=== PATIENT | male | born 1930 | race Caucasian/White ===

== ENCOUNTER 2018-08-12 11:46 | Inpatient (IN) | payer MEDICARE ==
[~2018-08-12] VITALS: Ht 175.3 cm; Wt 78.9 kg
[2018-08-12] MEDS ORDERED: SODIUM CHLORIDE FLUSH 10ML SYR IVF ONE (12:00)
[2018-08-12] MEDS ORDERED: PLEASE ENTER ALLERGIES MC SCH (12:00)
[2018-08-12 12:28] LABS: BASOPHILS # (AUTO) 0.02 x10^3/uL (0-0.1); BASOPHILS % (AUTO) 0 % (0-1); EOSINOPHILS # (AUTO) 0.04 x10^3/uL (0-0.4); EOSINOPHILS % (AUTO) 1 % (1-7); LYMPHOCYTES # (AUTO) 1.19 x10^3/uL (1-3.4); LYMPHOCYTES % (AUTO) 17 % (22-44); MD NO; MEAN CORPUSCULAR HEMOGLOBIN 32.6 pg (27.5-34.5); MEAN CORPUSCULAR HGB CONC 34.1 g/dL (33.2-36.2); MEAN CORPUSCULAR VOLUME 95.5 fL (81-97); MEAN PLATELET VOLUME 10.2 fL (7.4-10.4); MONOCYTES # (AUTO) 0.99 x10^3/uL (0.2-0.8); MONOCYTES % (AUTO) 14 % (2-9); NEUTROPHILS # (AUTO) 4.69 x10^3/uL (1.8-6.8); NEUTROPHILS % (AUTO) 68 % (42-75); PLATELET COUNT 208 x10^3/uL (130-400); RED CELL DISTRIBUTION WIDTH 13.2 % (9.4-14.8)
[2018-08-12 12:39] LABS: INTERNATIONAL NORMALIZED RATIO 1.05 (0.93-1.1); PROTHROMBIN TIME 10.9 Seconds (9.6-11.5)
[2018-08-12 12:47] LABS: ALANINE AMINOTRANSFERASE 27 U/L (12-78); ALBUMIN 3.8 g/dL (3.4-5.0); ANION GAP 9 mmol/L (5-15); CALCIUM 8.7 mg/dL (8.5-10.1); CHLORIDE 107 mmol/L (98-107)
[2018-08-12 12:49] LABS: ALKALINE PHOSPHATASE 88 U/L (45-117); BILIRUBIN,TOTAL 0.7 mg/dL (0.2-1.0); CREATININE 1.23 mg/dL (0.7-1.3); TOTAL PROTEIN 7.3 g/dL (6.4-8.2)
[2018-08-12] MEDS ORDERED: DIVA500T2 PO (15:21)
[2018-08-12] MEDS ORDERED: ASPI-496 PO (15:21)
[2018-08-12] MEDS ORDERED: DONE10TA14 PO (15:21)
[2018-08-12] MEDS ORDERED: SODIUM CHLORIDE FLUSH 10ML SYR IVF PRN (16:00)
[2018-08-12] MEDS: SODIUM CHLORIDE 0.9% 1,000 ML IV SCH (16:42)
[2018-08-12] MEDS ORDERED: DOCUSATE 100 MG CAPSULE PO PRN (17:00)
[2018-08-12] MEDS ORDERED: POLYETHYLENE GLYCOL 17 GM PACKET PO PRN (17:00)
[2018-08-12] MEDS ORDERED: BISACODYL 10 MG SUPP PR PRN (17:00)
[2018-08-12] MEDS ORDERED: LABETALOL 5MG/ML, 20ML IVPush PRN (17:00)
[2018-08-12] MEDS ORDERED: ENALAPRILAT 1.25 MG/ML, 2ML IVPush PRN (17:00)
[2018-08-12] MEDS ORDERED: ACETAMINOPHEN 325 MG TABLET PO PRN (17:00)
[2018-08-12 18:00] VITALS: BP 160/89
[2018-08-12 19:59] VITALS: BP 155/88
[2018-08-12] MEDS: HEPARIN 5,000 UNITS/ML, 1ML SQ SCH (20:16)
[2018-08-13 03:40] VITALS: BP 167/89
[2018-08-13] MEDS: HEPARIN 5,000 UNITS/ML, 1ML SQ SCH ×3 (04:41→20:31)
[2018-08-13] MEDS: SODIUM CHLORIDE 0.9% 1,000 ML IV SCH ×2 (06:12→20:31)
[2018-08-13 06:25] LABS: ALANINE AMINOTRANSFERASE 27 U/L (12-78); ALBUMIN 3.5 g/dL (3.4-5.0); ANION GAP 10 mmol/L (5-15); CHLORIDE 109 mmol/L (98-107); CREATININE 0.97 mg/dL (0.7-1.3)
[2018-08-13 06:27] LABS: ALKALINE PHOSPHATASE 80 U/L (45-117); BILIRUBIN,TOTAL 0.9 mg/dL (0.2-1.0); TOTAL PROTEIN 6.6 g/dL (6.4-8.2)
[2018-08-13 06:40] VITALS: BP 157/90
[2018-08-13] MEDS: ASPIRIN 81 MG TABLET EC PO SCH (09:26)
[2018-08-13] MEDS: DONEPEZIL 10 MG TABLET PO SCH (09:26)
[2018-08-13 14:40] VITALS: BP 125/72
[2018-08-13 18:16] LABS: MICROSCOPIC AUTO
[2018-08-13 18:34] LABS: CULTURE INDICATED? YES
[2018-08-13 21:53] VITALS: BP 186/85
[2018-08-13 22:08] VITALS: BP 183/100
[2018-08-13 22:44] VITALS: BP 153/85
[2018-08-14 01:49] VITALS: BP 166/70
[2018-08-14] MEDS: HEPARIN 5,000 UNITS/ML, 1ML SQ SCH ×3 (04:41→20:45)
[2018-08-14 07:15] VITALS: BP 178/86
[2018-08-14 07:37] LABS: BASOPHILS # (AUTO) 0.02 x10^3/uL (0-0.1); BASOPHILS % (AUTO) 0 % (0-1); EOSINOPHILS # (AUTO) 0.09 x10^3/uL (0-0.4); EOSINOPHILS % (AUTO) 1 % (1-7); LYMPHOCYTES # (AUTO) 1.27 x10^3/uL (1-3.4); LYMPHOCYTES % (AUTO) 20 % (22-44); MD NO; MEAN CORPUSCULAR HEMOGLOBIN 32.3 pg (27.5-34.5); MEAN CORPUSCULAR HGB CONC 34.5 g/dL (33.2-36.2); MEAN CORPUSCULAR VOLUME 93.6 fL (81-97); MEAN PLATELET VOLUME 10.4 fL (7.4-10.4); MONOCYTES # (AUTO) 0.78 x10^3/uL (0.2-0.8); MONOCYTES % (AUTO) 12 % (2-9); NEUTROPHILS # (AUTO) 4.32 x10^3/uL (1.8-6.8); NEUTROPHILS % (AUTO) 67 % (42-75); PLATELET COUNT 186 x10^3/uL (130-400); RED BLOOD COUNT 4.48 x10^6/uL (4.38-5.82); RED CELL DISTRIBUTION WIDTH 12.8 % (9.4-14.8)
[2018-08-14 07:55] LABS: ALBUMIN 3.4 g/dL (3.4-5.0); ANION GAP 8 mmol/L (5-15); CALCIUM 8.5 mg/dL (8.5-10.1); CHLORIDE 110 mmol/L (98-107); CREATININE 0.73 mg/dL (0.7-1.3)
[2018-08-14] MEDS: ASPIRIN 81 MG TABLET EC PO SCH (10:14)
[2018-08-14] MEDS: SODIUM CHLORIDE 0.9% 1,000 ML IV SCH (10:14)
[2018-08-14] MEDS: DONEPEZIL 10 MG TABLET PO SCH (10:14)
[2018-08-14 10:27] VITALS: BP 171/92
[2018-08-14] MEDS: hydrALAzine 20 MG/ML, 1ML IVPush PRN (10:33)
[2018-08-14 14:00] VITALS: BP 145/75
[2018-08-14 17:07] VITALS: BP 147/76
[2018-08-14 18:56] VITALS: BP 150/72
[2018-08-15 00:57] VITALS: BP 136/84
[2018-08-15] MEDS: SODIUM CHLORIDE 0.9% 1,000 ML IV SCH ×2 (02:02→19:52)
[2018-08-15] MEDS: HEPARIN 5,000 UNITS/ML, 1ML SQ SCH ×3 (05:00→19:53)
[2018-08-15 07:10] VITALS: BP 174/71
[2018-08-15] MEDS: hydrALAzine 20 MG/ML, 1ML IVPush PRN (09:35)
[2018-08-15] MEDS: DONEPEZIL 10 MG TABLET PO SCH (09:35)
[2018-08-15] MEDS: ASPIRIN 81 MG TABLET EC PO SCH (09:35)
[2018-08-15 13:10] VITALS: BP 112/72
[2018-08-15 18:47] VITALS: BP 126/56
[2018-08-16 03:47] VITALS: BP 145/72
[2018-08-16] MEDS: HEPARIN 5,000 UNITS/ML, 1ML SQ SCH ×3 (05:00→21:00)
[2018-08-16 07:13] VITALS: BP 157/76
[2018-08-16] MEDS: ASPIRIN 81 MG TABLET EC PO SCH (08:49)
[2018-08-16] MEDS: DONEPEZIL 10 MG TABLET PO SCH (08:49)
[2018-08-16 12:53] VITALS: BP 107/62
[2018-08-16] MEDS: SODIUM CHLORIDE 0.9% 1,000 ML IV SCH (21:01)
[2018-08-16 21:47] VITALS: BP 112/69
[2018-08-16] MEDS ORDERED: ZIPRASIDONE 20 MG INJ IM ONE ×2 (22:14→22:30)
[2018-08-17 02:12] VITALS: BP 119/75
[2018-08-17] MEDS: HEPARIN 5,000 UNITS/ML, 1ML SQ SCH ×3 (05:00→23:41)
[2018-08-17 07:50] VITALS: BP 104/54
[2018-08-17] MEDS: ASPIRIN 81 MG TABLET EC PO SCH (09:58)
[2018-08-17] MEDS: DONEPEZIL 10 MG TABLET PO SCH (09:58)
[2018-08-17] MEDS: SODIUM CHLORIDE 0.9% 1,000 ML IV SCH ×2 (11:27→23:41)
[2018-08-17 12:19] VITALS: BP 100/62
[2018-08-17 19:08] VITALS: BP 106/55
[2018-08-18 01:11] VITALS: BP 101/52
[2018-08-18 06:30] VITALS: BP 151/84
[2018-08-18] MEDS: HEPARIN 5,000 UNITS/ML, 1ML SQ SCH ×2 (09:19→16:06)
[2018-08-18] MEDS: ASPIRIN 81 MG TABLET EC PO SCH (09:19)
[2018-08-18] MEDS: DONEPEZIL 10 MG TABLET PO SCH (09:19)
[2018-08-18 12:09] VITALS: BP 168/89
[2018-08-18] MEDS: SODIUM CHLORIDE 0.9% 1,000 ML IV SCH (13:00)
[2018-08-18] MEDS ORDERED: HALOPERIDOL 5 MG/ML ONE (15:56)
[2018-08-18] MEDS ORDERED: HALOPERIDOL 5 MG/ML IM PRN (16:00)
[2018-08-18] MEDS ORDERED: HALOPERIDOL 5 MG/ML IV PRN (16:00)
[2018-08-18 19:09] VITALS: BP 98/62
[2018-08-18] MEDS: RISPERIDONE 0.5 MG TABLET PO SCH (20:08)
[2018-08-19 01:16] VITALS: BP 104/66
[2018-08-19] MEDS: SODIUM CHLORIDE 0.9% 1,000 ML IV SCH (02:30)
[2018-08-19 07:10] VITALS: BP 144/79
[2018-08-19] MEDS ORDERED: RISP0.5T24 PO (08:30)
[2018-08-19] MEDS: RISPERIDONE 0.5 MG TABLET PO SCH (08:47)
[2018-08-19] MEDS: DONEPEZIL 10 MG TABLET PO SCH (08:47)
[2018-08-19] MEDS: ASPIRIN 81 MG TABLET EC PO SCH (08:47)
[2018-08-19] MEDS: HEPARIN 5,000 UNITS/ML, 1ML SQ SCH ×2 (08:47)
== END 2018-08-19 13:20 | disposition hospice, home (50) | DRG 71 ==
LOC: ED 13:35 → EDIP 15:38 → 3NE 16:06 → 4WST 08-13 16:40
PROVIDERS: ADMIT Hospitalist; ATTEND Family Medicine
DX: G93.41 Metabolic encephalopathy (principal); E87.2 Acidosis; I50.22 Chronic systolic (congestive) heart failure; F03.90 Unspecified dementia, unspecified severity, without behavioral disturbance, psychotic disturbance, mood disturbance, and anxiety; R29.6 Repeated falls; R32 Unspecified urinary incontinence; M19.90 Unspecified osteoarthritis, unspecified site; W18.39XA Other fall on same level, initial encounter; M21.379 Foot drop, unspecified foot; Z66 Do not resuscitate; Z91.81 History of falling; Z95.0 Presence of cardiac pacemaker; Z82.49 Family history of ischemic heart disease and other diseases of the circulatory system; Z95.2 Presence of prosthetic heart valve; Z79.82 Long term (current) use of aspirin; Z87.81 Personal history of (healed) traumatic fracture; Z79.899 Other long term (current) drug therapy; Y93.89 Activity, other specified; Y92.89 Other specified places as the place of occurrence of the external cause
CPT/HCPCS: 36415; 70450; 71045; 72110; 80048; 80053; 81001; 82040; 82140; 82550; 82607; 83605; 83735; 84100; 84443; 85025; 85610; 85730; 86592; 87040; 87086; 93005; 93306; G0378; J1644; J3486; J0360; J7030